=== PATIENT | male | born 1985 | race Caucasian/White ===

== ENCOUNTER 2019-12-13 12:33 | Emergency (ER) | payer SELFPAY ==
[2019-12-13 12:43] VITALS: BP 131/78; PULSE 68; RESP 16; TEMP 36; O2SAT 99; BMI 39.6
--- NOTE | 2019-12-13 14:02 | ED.PSYCH ---
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 He has not been at work for the last week. He informed his employer that he had been sick. The story behind this story is that the patient has a history of depression. He has not had any major depression for the last 2 years prior to admission. He is off all medications. He has been using various home health holistic remedies without any problems. The patient states that for the last 3 weeks he has become very depressed. He is going through a divorce and has a 2-year-old son at home. He denies being in trouble with the law. He denies having any suicidal ideation or thoughts of harming himself as well as any plan on how to hurt himself. He denies any thoughts or desire to harm anyone else or any plan on how to harm anyone else. He feels very sad tired. He is also upset over the entire [place] it crisis and what is been going on economically. He denies a history of diabetes mellitus hypertension heart disease congenital heart disease heart murmur or asthma. He does not smoke cigarettes drink alcohol use any drugs. 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 Related Data Allergies Allergy/AdvReac Type Severity Reaction Status Date / Time PENICILLIN Allergy Mild hives Uncoded 10/30/17 12:24 Review of Systems Review of Systems Narrative: REVIEW OF SYSTEMS: CONSTITUTIONAL: He denies any fever chills or sweats. NEUROLOGICAL: He denies any headache, abnormal behavior, numbness tingling anesthesia is pre cysts or paralysis. EENT: He denies any change in his vision loss of vision scotomata diplopia sore throat trouble swallowing. CARDIO-PULMONARY: He denies any chest pain cough shortness of breath palpitations or dizziness. HEMOTOLOGICAL: He has had no bruising or bleeding abnormalities. GASTROINTESTINAL: He denies any significant weight loss, abdominal pain nausea vomiting diarrhea. GENITAL URINARY: He has had no urinary symptoms. MUSCULOSKELETAL/ RHEUMATOLOGICAL: He denies any back pain or neck pain MENTAL HEALTH: He has been depressed recently without any thoughts of suicide or homicide. Patient History Social History Smoking Status: Never smoker Smoking Status: Never smoker Substance Use Type: does not use Exam Narrative Exam Narrative: PHYSICAL EXAM: CONSTITUTIONAL: Awake, Alert, Oriented, Coherent, Cooperative in NAD. The patient appears depressed quiet speaks in a monotone with a slightly blunted flat affect. He almost appears in the [place] [facility] to be here for this. HEAD: AT/NC EENT: PERRL, FROM of eyes, no discharge, no nystagmus MOUTH:Oral mucosa is moist and pink, posterior pharynx is without erythema or exudate. NECK: Supple, no obvious JVD, Trachea is midline without stridor, no palpable LN. SPINE: Palpationof the cervical, Thoracic, Lumbar or Sacral spine reveals no gross deformity or tenderness. No CVA tenderness. THORAX: No deformity, retractions, chest wall tenderness. LUNGS: Clear, symmetrical breath sounds without respiratory distress. HEART: Normal heart tones, regular rhythm and rate without murmur. ABDOMEN: Soft, non-tender, normal bowel sounds without guarding, rebound, rigidity or palpable mass. EXTREMITIES: No edema, deformity, tenderness or cyanosis. SKIN: No rash, bruising, petechiae or purpura. NEURO: Awake, alert, oriented, conversive, cranial nerves II-XII are symmetrical , moves all 4 extremities and is ambulatory. Initial Vital Signs Initial Vital Signs: Vital Signs Temperature 96.8 F L 12/13/19 12:43 Pulse Rate 68 12/13/19 12:43 Respiratory Rate 16 12/13/19 12:43 Blood Pressure 131/78 12/13/19 12:43 Pulse Oximetry 99 12/13/19 12:43 Course Course Course Narrative: 1457: The patient currently is medically cleared. He was evaluated by the medical and health services manager who agrees with my assessment. This appears to be a situational depression. The patient has a past history of depression. He probably will do better returning to working getting back to the routine. The situation that is triggered this depression is his divorce. The patient has never been hospitalized for his depression nor has he tried to harm anyone else or harm himself. The patient is going to follow-up with the would be medical clinic to possibly be initiated and started on an antidepressant medications. He is going to go back to the group that he had been seeing in the past for his depression. He is currently living with his parents and has support for his depression. The patient will be discharged home and given a work excuse to return to work. 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 Motor Vehicles Stat 12/13/19 14:14 Acetaminophen Stat Complete Blood Count AUTO DIFF Stat Comprehensive Metabolic Panel Stat Ethanol (ETOH) Stat Salicylate Stat Thyroid Stimulating Hormone Stat Urinalysis and Microscopic Stat Urine Drug Screen, Rapid Stat Vital Signs Vital signs: Vital Signs - 8 hr 12/13/19 12:43 12/13/19 15:24 Temperature 96.8 F L 97.9 F Pulse Rate 68 71 Respiratory Rate 16 16 Blood Pressure 131/78 137/88 Pulse Oximetry 99 100 MDM - Psych Lab Data Result diagrams: 12/13/19 14:14 12/13/19 14:14 Labs: Lab Results 12/13/19 12/13/19 12/13/19 Range/Units 14:14 14:14 14:14 WBC 8.5 (4.5-11.0) X10^3/uL RBC 5.80 (4.5-5.9) X10^6/uL Hgb 16.9 (13.5-17.5) g/dL Hct 48.1 (41-53) % MCV 83.0 (80-100) fL MCH 29.2 (26-34) PG MCHC 35.1 (30-36) % RDW 12.3 (11.6-14.8) % Plt Count 298 (150-400) X10^3/uL Neut % (Auto) 52.3 (50-75) % Lymph % (Auto) 40.1 H (25-40) % Kerr % (Auto) 6.5 (3-14) % Eos % (Auto) 0.7 L (2-4) % Baso % (Auto) 0.4 (0-2) % Neut # (Auto) 4500 (3389-4867) /uL Lymph # (Auto) 3400 (1656-5738) /uL Kerr # (Auto) 600 (0-900) /uL Eos # (Auto) 100 (0-450) /uL Baso # (Auto) 0 (0-100) /uL Sodium 139 (137-145) mmol/L Potassium 4.4 (3.4-5.1) mmol/L Chloride 102 (98-107) mmol/L Carbon Dioxide 28 (22-32) mmol/L BUN 19 (9-20) mg/dL Creatinine 0.98 (0.66-1.25) mg/dL Estimated GFR > 60.0 (>60) mL/min BUN/Creatinine Ratio 19.4 (6-22) Glucose 94 (70-100) mg/dL Calcium 10.4 H (8.4-10.2) mg/dL Total Bilirubin 0.5 (0.2-1.3) mg/dL AST 30 (17-59) IU/L ALT 26 (<50) IU/L Alkaline Phosphatase 68 (38-126) U/L Total Protein 9.0 H (6.3-8.2) g/dL Albumin 4.8 (3.5-5.0) g/dL Globulin 4.2 H (1.7-4.1) g/dL Albumin/Globulin Ratio 1.1 (1.0-2.8) TSH 2.01 (0.47-4.68) uIU/mL Urine Color Urine Appearance Urine pH (4.5-8.0) Ur Specific [place] (1.000-1.035) Urine Protein (Negative) Urine Glucose (UA) (Negative) g/dL Urine Ketones (NEGATIVE) Urine Occult Blood (Negative) Urine Nitrate (Negative) Urine Bilirubin (NEGATIVE) Urine Urobilinogen (0.2) E.U./dL Ur Leukocyte Esterase (NEGATIVE) Urine RBC (0-5/HPF) Urine WBC (0-5/HPF) Ur Squamous Epith Cells (0-5/HPF) Urine Bacteria (None) Ur Culture Indicated? Salicylates < 1.0 (<20) mg/dL U Opiates 300ng/mL cut (Negative) Ur Oxycodone Screen (Negative) Urine Methadone Screen (Negative) Acetaminophen < 10 L (10-30) ug/mL Ur Barbiturates Screen (Negative) U Tricyclic Antidepress (Negative) Ur Phencyclidine Scrn (Negative) Ur Amphetamines Screen (Negative) U Methamphetamines Scrn (Negative) Ur MDMA Scrn (Ecstasy) (Negative) U Benzodiazepines Scrn (Negative) Urine Cocaine Screen (Negative) U Marijuana (THC) Screen (Negative) Ethyl Alcohol < 10 ( - 10) mg/dL 12/13/19 12/13/19 Range/Units 14:14 14:14 WBC (4.5-11.0) X10^3/uL RBC (4.5-5.9) X10^6/uL Hgb (13.5-17.5) g/dL Hct (41-53) % MCV (80-100) fL MCH (26-34) PG MCHC (30-36) % RDW (11.6-14.8) % Plt Count (150-400) X10^3/uL Neut % (Auto) (50-75) % Lymph % (Auto) (25-40) % Kerr % (Auto) (3-14) % Eos % (Auto) (2-4) % Baso % (Auto) (0-2) % Neut # (Auto) (6995-6819) /uL Lymph # (Auto) (6561-6489) /uL Kerr # (Auto) (0-900) /uL Eos # (Auto) (0-450) /uL Baso # (Auto) (0-100) /uL Sodium (137-145) mmol/L Potassium (3.4-5.1) mmol/L Chloride (98-107) mmol/L Carbon Dioxide (22-32) mmol/L BUN (9-20) mg/dL Creatinine (0.66-1.25) mg/dL Estimated GFR (>60) mL/min BUN/Creatinine Ratio (6-22) Glucose (70-100) mg/dL Calcium (8.4-10.2) mg/dL Total Bilirubin (0.2-1.3) mg/dL AST (17-59) IU/L ALT (<50) IU/L Alkaline Phosphatase (38-126) U/L Total Protein (6.3-8.2) g/dL Albumin (3.5-5.0) g/dL Globulin (1.7-4.1) g/dL Albumin/Globulin Ratio (1.0-2.8) TSH (0.47-4.68) uIU/mL Urine Color Yellow Urine Appearance Clear Urine pH 6.0 (4.5-8.0) Ur Specific [place] 1.020 (1.000-1.035) Urine Protein Negative (Negative) Urine Glucose (UA) Negative (Negative) g/dL Urine Ketones Negative (NEGATIVE) Urine Occult Blood Negative (Negative) Urine Nitrate Negative (Negative) Urine Bilirubin Negative (NEGATIVE) Urine Urobilinogen 0.2 (0.2) E.U./dL Ur Leukocyte Esterase Negative (NEGATIVE) Urine RBC 0-1/hpf (0-5/HPF) Urine WBC None seen (0-5/HPF) Ur Squamous Epith Cells 0-1 /hpf (0-5/HPF) Urine Bacteria None seen (None) Ur Culture Indicated? Cult not indicated Salicylates (<20) mg/dL U Opiates 300ng/mL cut Negative (Negative) Ur Oxycodone Screen Negative (Negative) Urine Methadone Screen Negative (Negative) Acetaminophen (10-30) ug/mL Ur Barbiturates Screen Negative (Negative) U Tricyclic Antidepress Negative (Negative) Ur Phencyclidine Scrn Negative (Negative) Ur Amphetamines Screen Negative (Negative) U Methamphetamines Scrn Negative (Negative) Ur MDMA Scrn (Ecstasy) Negative (Negative) U Benzodiazepines Scrn Negative (Negative) Urine Cocaine Screen Negative (Negative) U Marijuana (THC) Screen Negative (Negative) Ethyl Alcohol ( - 10) mg/dL Discharge Plan Departure Patient Disposition: Home Clinical Impression: Depression Qualifiers: Depression Type: other depression Qualified Code(s): F32.89 - Other specified depressive episodes Discharge Date/Time: 12/13/19 15:28 Instructions: DI for Depression -- Adult, DI for Suicidal Ideation-Adult Activity Restrictions/Additional Instructions: 1. As planned follow-up with the [facility] to establish a family physician and possibly be started on an antidepressant. 2. If you develop worsening depression or thoughts of harming yourself or anyone else please return to the emergency department for evaluation and assistance. 3. As discussed with the medical and health services manager follow-up with the group eat you use to follow-up with for counseling for your depression. 4. You are able to return to work at full capacity. Stand Alone Forms: Work Release Note
[2019-12-13 14:19] LABS: Bacteria Urine None Seen; WBC Urine None Seen (0-5/HPF)
[2019-12-13 14:22] LABS: Bilirubin Urine UA NEGATIVE (NEGATIVE); Color Urine UA YELLOW; Glucose Urine UA NEGATIVE (Negative); Ketones Urine UA NEGATIVE (NEGATIVE); Leukocyte Esterase Urine UA NEGATIVE (NEGATIVE); Nitrite Urine UA NEGATIVE (Negative); Occult Blood Urine UA NEGATIVE (Negative); Protein Urine UA NEGATIVE (Negative); Urobilinogen Urine UA 0.2 E.U./dL (0.2)
[2019-12-13 14:23] LABS: Add Manual Diff / Slide Review NO; Basophils Absolute Auto 0 /uL (0-100); Basophils Percent Auto 0.4 % (0-2); Eosinophils Absolute Auto 100 /uL (0-450); Eosinophils Percent Auto 0.7 % (2-4); Hematocrit 48.1 % (41-53); Hemoglobin 16.9 g/dL (13.5-17.5); Lymphocytes Absolute Auto 3400 /uL (1100-4500); Lymphocytes Percent Auto 40.1 % (25-40); Mean Corpuscular HGB Conc 35.1 % (30-36); Mean Corpuscular Hemoglobin 29.2 PG (26-34); Monocytes Absolute Auto 600 /uL (0-900); Monocytes Percent Auto 6.5 % (3-14); Neutrophils Absolute Auto 4500 /uL (1500-7000); Neutrophils Percent Auto 52.3 % (50-75); Platelet Count 298 X10^3/uL (150-400); Red Cell Distribution Width 12.3 % (11.6-14.8); White Blood Cell Count 8.5 X10^3/uL (4.5-11.0)
[2019-12-13 14:29] LABS: Appearance Urine UA Clear; Culture Indicated Urine Cult Not Indicated; RBC Urine 0-1/HPF (0-5/HPF); Squamous Epithelial Cell Urine 0-1 /HPF (0-5/HPF); UR Morphine/Opiate cutoff 300 Negative (Negative); Ur Creatinine 20 (Normal); Ur Specific Gravity 1.025 (Normal); Urine Amphetamines Negative (Negative); Urine Barbiturates Negative (Negative); Urine Benzodiazepines Negative (Negative); Urine Cocaine Negative (Negative); Urine MDMA Negative (Negative); Urine Methadone Negative (Negative); Urine Methamphetamines Negative (Negative); Urine Oxycodone Negative (Negative); Urine Phencyclidine Negative (Negative); Urine Tetrahydrocannabinol Negative (Negative); Urine Tricyclic Antidepressant Negative (Negative); Urine pH 5 (Normal)
[2019-12-13 14:38] LABS: Acetaminophen < 10 ug/mL (10-30); Alanine Aminotransferase 26 IU/L (<50); Albumin 4.8 g/dL (3.5-5.0); Albumin Globulin Ratio 1.1 (1.0-2.8); Alkaline Phosphatase 68 U/L (38-126); Aspartate Aminotransferase 30 IU/L (17-59); BUN Creatinine Ratio 19.4 (6-22); Bilirubin Total 0.5 mg/dL (0.2-1.3); Blood Urea Nitrogen 19 mg/dL (9-20); Calcium 10.4 mg/dL (8.4-10.2); Carbon Dioxide 28 mmol/L (22-32); Chloride 102 mmol/L (98-107); Estimated Glomerular Filt Rate > 60.0 mL/min (>60); Ethanol (ETOH) < 10 mg/dL; Globulin 4.2 g/dL (1.7-4.1); Glucose 94 mg/dL (70-100); HEMOLYSIS < 15 (0-50); Potassium 4.4 mmol/L (3.4-5.1); Salicylate < 1.0 mg/dL (<20); Sodium 139 mmol/L (137-145)
[2019-12-13 15:08] LABS: Thyroid Stimulating Hormone 2.01 uIU/mL (0.47-4.68)
--- NOTE | 2019-12-13 15:18 | CM.SWNOTE ---
MH Assessment Patient is a 34 year old male who was admitted to [facility] ER on 12/13/19 for anxiety and depression. Pt has PRE DIM for insurance and is not currently established with PCP. EMR was reviewed. JAVA APPLICATION ENGINEER Consult for mental health assessment and safety planning/resources. See below for assessment: Discharge Planning/Care Management ED Psychiatric Symptoms Assessment Start: 12/13/19 12:47 Freq: Status: Active Protocol: Document 12/13/19 13:03 [facility] [place] (Rec: 12/13/19 13:09 [facility] [place] [id number]) Psychiatric Symptoms Assessment Symptoms/Complaint Feels Depressed Onset 2-3 weeks, last week worsened Duration Getting Worse History Of Same Yes Context Not Taking Psychiatric Medications,Significant Life Stressor Improves With Nothing Worsens With Nothing Associated Psychiatric Symptoms Depression Associated Symptoms Denies Other Symptoms Details of Plan no plans to harm self or others Level of Consciousness Alert,Appropriate Patient Orientation Name,Age,Birthday,Month,Date, Year,Day of Week,Place, Situation Patient Behavior/Mood Cooperative Ability to Follow Directions Excellent Patient Cognition Impaired No Affect Description Depressed Patient Appearance Well Groomed Hallucination Type None Delusion Description Not Present Thought Process: Normal Depressive Symptoms Changes in Appetite,Difficulty Concentrating,Increased Anxiety,Isolating Oneself From Friends and Family,Loss of Energy,Loss of Interest in Activities Major Depressive Episode Yes Feelings of Hopelessness No Suicidal Ideation None Suicide Plan No Plan Homicidal Ideation None Nausea/Vomiting None JAVA APPLICATION ENGINEER - Voltage Tester Assessment Start: 12/13/19 14:54 Freq: Status: Active Protocol: Document 12/13/19 14:54 BF (Rec: 12/13/19 15:17 BF [id number]) JAVA APPLICATION ENGINEER/Voltage Tester Assessment Start date 12/13/19 Visit Start Time 14:00 End date 12/13/19 Visit End Time 14:45 Total time Care Management spent on 70 min patient visit-in minutes Presenting Problem Patient presented to [facility] ED for anxiety and depression. Precipitating Event(s) Pt states that the COVID 19 stay home order and precautions in combination with his pending divorce from his have triggered his depression and anxiety to a point that he lost motivation for work and called in sick for the past week. Current Behavioral Health Provider(s) Not currently established, Include Facility, Provider, Ph. # previously was enrolled with [facility] for counseling support [phone] about 2 years ago . Psych. Hx Mental Health and Chemical Pt has a hx of being Dependency established with a Psychiatrist for med management to find an antidepressant that worked best for him and settled on Wellbutrin and has not needed to see a psychiatrist for a few years. Psychiatric Hospitalizations (date(s)/ Denies any need for Inpt MH tx location) Support System(s) Pt currently lives with his parents and family members while he is in the process of from his spouse and feels his family is very supportive and able to listen. 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 Thought Content - Specify/Describe Denies any auditory or visual Obsessions, Delusions, Hallucinations disturbances and does not appear to be reacting to any stimuli Speech (Xvtojd-Xqxe-Kwmgfnp-Rapid-Soft- Normal Loud-Pressured) Motor (Ghsdmm-Qnyfbjznq-Hnwf-Other) Normal Insight (Present-Partially Present- Present, pt able to identify Impaired) triggers and steps needed to get back on track including resuming work, establishing with PCP and mental health counseling Judgement (Intact-Impaired) Intact Memory (Mpghxbwlb-Cqjgex-Dnoeej, Immediate Impaired-Intact) Behavior (Appropriate-Inappropriate) Appropriate, calm and cooperative Suicidal Ideation (Plan) No Homicidal Ideation (Plan) No Intervention JAVA APPLICATION ENGINEER met bedside with pt in ED room 12 and pt confirms that life stressors of COVID and his divorce with his spouse have triggered his depression and anxiety that he has had since his youth. Patient confirms that he has a hx of using Wellbutrin for anxiety and depression but that he had been stable the past two years on vitamins and holistic medicine that he has not needed any MH medication until current COVID stressors put him over the top. Pt states now that he has taken a few days off work he is ready to get medical clearance from the ED MD to go back to work and he is agreeable with re- establishing with PCP at [facility] (where he used to be established but has not needed medical care in the past 3 years and therefore is not currently established with PCP) and also feels that mental health counseling would be helpful to talk through his stress and discuss additional coping skills. Patient denies any suicidal ideation or any hx of suicidal ideation or need for Inpt MH tx. RA Plan JAVA APPLICATION ENGINEER provided resources for multiple mental health counseling outpt clinics and one included his previous mental health counseling clinic in [place] through [facility] and pt previously accessed their services through his employer through the [employer] program and pt plans to attempt this again. Pt plans to call his previous PCP office at [facility] as he knows he needs to be established and followed by PCP for antidepressant/anxiety medication or see Psychiatrist for med management. Pt seems to have good insight into his triggers and steps to get additional coping skills and appears to be able to safety plan for return home with his supportive family and to the community with least restrictive options. JAVA APPLICATION ENGINEER provided additional resources including the Crisis Line and Mobile Outreach Team through [facility] if needed. Pt appreciative and states he is safe for d/c to the community with supportive family. JAVA APPLICATION ENGINEER updated RN, application coordinator, MD.
[2019-12-13 15:24] VITALS: BP 137/88; PULSE 71; RESP 16; TEMP 36.6; O2SAT 100
== END 2019-12-13 15:28 | disposition home or self-care (01) ==
PROVIDERS: Emergency Provider Emergency Medicine
DX: F32.9 Major depressive disorder, single episode, unspecified (principal)
CPT/HCPCS: 36415; 80053; 80305; 80320; 80329; 81001; 84443; 85025; 99283; G0480